=== PATIENT | male | born 1965 | race American Indian/Alaskan Native ===

== ENCOUNTER 2019-09-12 14:09 | Emergency (ER) | payer SELFPAY ==
--- NOTE | 2019-09-12 15:09 | Emergency Department Report ---
Blank Doc - Documentation Documentation: 54-year-old male that presents with headache and dizziness. Denies any head t rauma. Denies worst headache or thunderclap headache. No weakness. This initial assessment/diagnostic orders/clinical plan/treatment(s) is/are subject to change based on patient's health status, clinical progression and re- assessment by fellow clinical providers in the ED. Further treatment and workup at subsequent clinical providers discretion. Patient/guardians urged not to elope from the ED as their condition may be serious if not clinically assessed and managed. Initial orders include: 1- Patient sent to [facility] for further evaluation and treatment 2- labs 3- orthostatic vitals
[2019-09-12 15:10] VITALS: BP 149/90
[2019-09-12 15:55] LABS: Basophils % (Auto) 0.6 % (0.0-1.8); Eosinophils # (Auto) 0.2 K/mm3 (0.0-0.4); Eosinophils % (Auto) 2.7 % (0.0-4.3); Hematocrit 41.8 % (35.5-45.6); Hemoglobin 13.9 gm/dl (11.8-15.2); Lymphocytes # (Auto) 2.1 K/mm3 (1.2-5.4); Lymphocytes % (Auto) 34.6 % (13.4-35.0); Mean Corpuscular HGB Conc 33 % (32-34); Mean Corpuscular Volume 89 fl (84-94); Monocytes # (Auto) 0.3 K/mm3 (0.0-0.8); Monocytes % (Auto) 5.3 % (0.0-7.3); Platelet Count 232 K/mm3 (140-440); Red Blood Count 4.68 M/mm3 (3.65-5.03); Red Cell Distribution Width 14.9 % (13.2-15.2)
[2019-09-12 16:12] LABS: BUN/Creatinine Ratio 11; Blood Urea Nitrogen 11 mg/dL (9-20); Calcium 8.7 mg/dL (8.4-10.2); Hemolysis Index 18
--- NOTE | 2019-09-12 16:13 | Cat Scan Report ---
CT HEAD WITHOUT CONTRAST INDICATION / CLINICAL INFORMATION: Headache and dizziness for 24 hours. TECHNIQUE: Axial imaging performed from the skull apex through the skull base without the use of cont rast. Sagittal and coronal reformatted images. All CT scans at this location are performed using CT dose reduction for ALARA by means of automated exposure control. COMPARISON: None available. FINDINGS: CEREBRAL PARENCHYMA: No significant abnormality. No acute territorial infarct. HEMORRHAGE: None. EXTRA-AXIAL SPACES: Normal in size and morphology for the patient's age. VENTRICULAR SYSTEM: Normal in size and morphology for the patient's age. MIDLINE SHIFT OR HERNIATION: None. CEREBELLUM / BRAINSTEM: No significant abnormality. CALVARIUM: No significant abnormality. ORBITS: Normal as visualized. PARANASAL SINUSES / MASTOID AIR CELLS: Normal as visualized. SOFT TISSUES of HEAD: No significant abnormality. ADDITIONAL FINDINGS: None. IMPRESSION: Cranial CT scan within normal limits. Signer Name: Faheem Nolen Jr, MD Signed: 09/12/2019 4:08 PM Workstation Name: [id number]
== END 2019-09-12 15:54 | disposition left against medical advice (07) ==
LOC: ED 14:09
DX: R51 Headache (principal); R42 Dizziness and giddiness; Z53.21 Procedure and treatment not carried out due to patient leaving prior to being seen by health care provider
CPT/HCPCS: 36415; 70450; 80048; 85025

== ENCOUNTER 2019-09-20 14:21 | Emergency (ER) | payer SELFPAY ==
[2019-09-20 14:31] VITALS: BP 146/84
--- NOTE | 2019-09-20 14:36 | Emergency Department Report ---
Chief Complaint: Headache Stated Complaint: HEADACHE/HAY FEVER Time Seen by Provider: 09/20/19 14:32 - HPI History of Present Illness: 54 y o male presents with headache and sinus allergies x 2 days no other sx - ROS Review of Systems: as noted in HPI - Exam Vital Signs: Vital Signs 09/20/19 14:29 Temperature 98.5 F Pulse Rate 57 L Respiratory 16 Rate Blood Pressure 146/84 O2 Sat by Pulse 98 Oximetry Physical Exam: Gen: aao x 3 no acute distress no trauma, no neuro deficit MSE screening note: Focused history and physical exam performed. Due to findings the following was ordered: ED Disposition for MSE Clinical Impression: Headache, Sinus headache Disposition: Z- MED SCREENING EXAM-LEFT Is pt being admited?: No Does the pt Need Aspirin: No Condition: Stable Instructions: Sinusitis (ED) Additional Instructions: follow up with pcp Referrals: SHERLEY PINK MD [Staff Physician] - 3-5 Days [facility] [Outside] - 3-5 Days Forms: Work/School Release Form(ED) Time of Disposition: 14:35
== END 2019-09-20 14:35 | disposition left against medical advice (07) ==
LOC: ED 14:21
DX: R51 Headache (principal)
CPT/HCPCS: 99281

== ENCOUNTER 2019-10-25 14:37 | Emergency (ER) | payer SELFPAY ==
[2019-10-25 15:54] VITALS: BP 141/97
--- NOTE | 2019-10-25 15:59 | Event Note ---
ED Screening Note ED Screening Note: states that he had a tick bite a month ago states he wants to be tested for lyme disease states he wants abx pt states he has intermittent headaches pt was evaluated in the ED last month had a CT scan and labs which were WNL VSS advised pt that lyme testing does not occur in the emergency department discussed with pt that abx are not currently indicated after a tick bite that occurred a month ago advised pt that we would refer him to PCP and infectious disease for further evaluation advised pt that we would take basic labs and treat him for a headache and he would have a full evaluation and history and physical in [facility] he eloped from the emergency department because we did not have lyme testing he is A&Ox4 he is ambulatory without difficulty he is spontaneously moving all extremities This initial assessment/diagnostic orders/clinical plan/treatment(s) is/are subject to change based on patients health status, clinical progression and re- assessment by fellow clinical providers in the ED. Further treatment and workup at subsequent clinical providers discretion. Patient/guardian urged not to elope from the ED as their condition may be serious if not clinically assessed and managed.
== END 2019-10-26 18:04 | disposition home or self-care (01) ==
LOC: ED 14:37
DX: R51 Headache (principal); Z53.21 Procedure and treatment not carried out due to patient leaving prior to being seen by health care provider